=== PATIENT | male | born 1970 | race Caucasian/White ===

== ENCOUNTER 2019-07-26 08:08 | Day surgery (SDC) | payer OTHER ==
[2019-07-24 09:46] VITALS: BMI 23.1
[~2019-07-26 08:08] MED LIST: LACTATED RINGERS 1,000 ML IV SCH; LIDOCAINE 1% (10MG/ML) FOR IV START INTRADERMA PRN
[2019-07-26 08:33] VITALS: RESP 16; TEMP 97.6
[2019-07-26] MEDS ORDERED: LIDOCAINE 1% INJ 10MG/ML (20 ML MDV) ONE (08:53)
[2019-07-26] MEDS ORDERED: PROPOFOL 10 MG/ML 20 ML VIAL IV ONE (08:53)
--- NOTE | 2019-07-26 09:38 | P.PCN ---
Date of Procedure: 07/26/19 Description of Procedure: BRIEF HISTORY: Patient is a 49-year-old male presenting for outpatient colonoscopy for screening for malignant neoplasm of the colon. No prior colonoscopies reported. No change in bowel habits, no blood per rectum, no abdominal pain. He does report a family history of colon cancer in his grandfather. PROCEDURE PERFORMED: Colonoscopy with polypectomy. PREOPERATIVE DIAGNOSIS: Screening for malignant neoplasm of the colon, no prior colonoscopies reported. ESTIMATED BLOOD LOSS: Minimal. IV sedation per Anesthesia. PROCEDURE: After informed consent was obtained, the patient, was brought into the endoscopy unit. IV sedation was administered by Anesthesia under continuous monitoring. Digital rectal examination was normal. Initially the Olympus CF-190 flexible video colonoscope was then inserted in the rectum, gradually advanced into the cecum without any difficulty. Careful examination was performed as the scope was gradually being withdrawn. Ileocecal valve and the appendiceal orifice were visualized and appeared normal. Prep was excellent. Mucosa of the cecum, ascending colon, transverse colon, descending colon, sigmoid colon, and rectum appeared normal. A few scattered diverticula noted in the sigmoid colon. Sessile 1 cm sigmoid colon polyp removed with cold snare polypectomy. Diminutive 2 mm sigmoid colon polyp removed with cold forcep polypectomy. Sessile 7 mm rectal polyp removed with cold snare polypectomy. Retroflexion was performed in the rectum and no lesions were seen. The patient tolerated the procedure well. IMPRESSION: Mild sigmoid diverticulosis. Polyps removed from the sigmoid colon and rectum with cold snare polypectomy. Diminutive sigmoid colon polyp removed with cold forcep polypectomy. RECOMMENDATIONS: Findings of this examination were discussed with the patient and his . Okay to resume diet. Okay to resume medications. Await pathology from polypectomies. Would recommend repeat colonoscopy in 3 years for high risk colon polyps.
[2019-07-26 09:59] VITALS: BP 112/72; PULSE 62
== END 2019-07-26 10:25 | disposition home or self-care (01) ==
LOC: ORWHC2ENDO 08:08
PROVIDERS: ATTEND Internal Medicine
DX: Z12.11 Encounter for screening for malignant neoplasm of colon (principal); K63.5 Polyp of colon; K62.1 Rectal polyp; K57.30 Diverticulosis of large intestine without perforation or abscess without bleeding; Z80.0 Family history of malignant neoplasm of digestive organs; F17.210 Nicotine dependence, cigarettes, uncomplicated; R25.2 Cramp and spasm; Z79.899 Other long term (current) drug therapy; Z98.890 Other specified postprocedural states
CPT/HCPCS: 88305; 45380; 45385; J2001; J2704

== ENCOUNTER → 2020-12-15 | Outpatient (CLI) | payer OTHER ==
--- NOTE | 2020-12-15 14:36 | US ---
EXAMINATION TYPE: US thyroid st tissue head/neck DATE OF EXAM: 12/15/2020 COMPARISON: NONE CLINICAL HISTORY: 50-year-old male E03.9 HYPOTHYROIDISM. GLAND SIZE: Right Lobe: 5.4 x 1.8 x 1.9 cm Overall Parenchyma: heterogenous Left Lobe: 5.2 x 1.8 x 1.7 cm Overall Parenchyma: heterogeneous Isthmus Thickness: 0.3 cm NODULES RIGHT: # of nodules measured on right: 0 LEFT: # of nodules measured on left: 0 ISTHMUS: # of nodules measured in the isthmus: 0 Bilateral neck scanned, no evidence of lymphadenopathy. [employer] Professor notes: Mildly enlarged heterogeneous gland without any nodules seen. IMPRESSION: Mild thyromegaly with slight glandular heterogeneity. Findings could reflect goiter or diffuse thyroi ditis. No discrete nodule.
[2020-12-15 15:50] LABS: T4, Free (Free Thyroxine) 3.49 ng/dL (0.78-2.19)
[2020-12-15 19:33] LABS: Thyroid Peroxidase Antibodies 513.9 U/mL (0.0-60.0)
== END | disposition home or self-care (01) ==
LOC: RADUSWWP 14:05
PROVIDERS: ATTEND Family Medicine
DX: E01.0 Iodine-deficiency related diffuse (endemic) goiter (principal)
CPT/HCPCS: 76536; 84439; 84443; 84481; 86376; 86800

== ENCOUNTER → 2021-05-13 | Outpatient (CLI) | payer OTHER ==
--- NOTE | 2021-05-14 10:49 | NM ---
EXAMINATION TYPE: NM thyroid image w uptake DATE OF EXAM: 05/14/2021 COMPARISON: Thyroid ultrasound 12/15/2020 HISTORY: 50-year-old male E05.90, hyperthyroidism TECHNIQUE: Thyroid iodine uptake is calculated and images performed after the oral administration of 311 uCi 1-123 Capsule. FINDINGS: There is prominent activity throughout the gland. The 4 hour iodine uptake is calculated at 50% (normal range 8-14%). The 24-hour iodine uptake is calculated at 63.9% (normal range 15-35%). IMPRESSION: 1. Diffuse increased activity throughout the gland. 2. Uptake measurements indicate hyperthyroidism. Correlate for Graves' disease.
== END | disposition home or self-care (01) ==
LOC: RADNMMAIN 08:56
PROVIDERS: ATTEND Internal Medicine
DX: E05.90 Thyrotoxicosis, unspecified without thyrotoxic crisis or storm (principal)
CPT/HCPCS: 78014; A9516